=== PATIENT | female | born 1950 | race Caucasian/White ===

== ENCOUNTER 2019-05-18 08:10 | Outpatient (CLI) | payer MEDICARE, OTHER ==
[~2019-05-18] VITALS: Ht 160 cm; Wt 82.3 kg
[2019-05-18] VITALS (19 sets, daily range): BP systolic 124–153; BP diastolic 70–99; PULSE 80–92; TEMP 97.7
[2019-05-18] MEDS ORDERED: NEURONTIN100 MG/CAP PO (08:32)
[2019-05-18] MEDS ORDERED: PRILOSEC 20MG20 MG PO (08:33)
[2019-05-18] MEDS ORDERED: EFFEXOR 75M75 MG/TAB PO (08:33)
[2019-05-18] MEDS ORDERED: NORVASC 5MG5 MG/TAB PO (08:33)
[2019-05-18] MEDS ORDERED: ULTRAM 50MG TAB50 MG PO (08:34)
[2019-05-18] MEDS ORDERED: BOOST HIGH PRO240 ML (08:57)
--- NOTE | 2019-05-18 09:31 | NUR ---
PT WAS ENCOURAGED TO EMPTY BLADDER WHEN GATE KEEPER ARRIVES TO TAKE HER TO CT IMAGING. FERCHO TATE STATED THAT THE PATHOLOGIST SHOULD BE ARRIVING AT 10:30.
[2019-05-18 09:44] LABS: BASO % 0.3 % (0.0-2.0); EOS # 0.1 (0.0-0.7); EOS % 2.2 % (0-4.0); GRAN # 4.3 (1.4-6.5); GRAN % 73.9 % (42.2-75.2); HEMATOCRIT 38.2 % (37.0-47.0); HEMOGLOBIN 12.4 g/dl (12.5-16.0); LYMPH # 0.7 (1.2-3.4); LYMPH % 12.6 % (20.0-51.0); MEAN CELL VOLUME 93 fl (80.0-100.0); MEAN CORPUSCULAR HEMOGLOBIN 30 pg (27.0-31.0); MEAN CORPUSCULAR HGB CONC 33 g/dl (33.0-37.0); MEAN PLATELET VOLUME 10.1 fl (7.4-10.4); MONO # 0.6 (0.1-0.6); MONO % 10.8 % (1.7-9.3); PLATELET COUNT 257 K/mm3 (130-400); RED BLOOD COUNT 4.12 M/mm3 (4.10-5.30); REDCELL DISTRIBUTION WIDTH-CV 12.8 % (11.5-14.5)
[2019-05-18 09:45] LABS: INR 0.9 (0.8-3.0); PROTHROMBIN TIME 10.7 SECONDS (9.7-12.8)
[2019-05-18 09:47] LABS: PARTIAL THROMBOPLASTIN TIME 34.5 SECONDS (26.0-37.0)
--- NOTE | 2019-05-18 10:25 | NUR ---
pt on ct table on arrival. Pt in prone position. Monitors applied and O2 on at 2l/nc.
--- NOTE | 2019-05-18 10:45 | NUR ---
Specimens obtained and taken to pathologist to verify kidney cells.
--- NOTE | 2019-05-18 11:00 | NUR ---
PT RETURNED FROM PROCEDURE. REPORT TAKEN FROM FERCHO TATE FROM RADIOLOGY.
--- NOTE | 2019-05-18 13:30 | NUR ---
PT VOIDED AND URINE WAS CLEAR PER FERCHO JUARES IN [facility]. NO SAMPLE RACKED. THIS RN WILL RACK NEXT VOID.
--- NOTE | 2019-05-18 17:27 | NUR ---
PT TOOK TRAMADOL 50 MG 1 TABLET FOR PAIN CONTROL ON THE WAY HOME.
--- NOTE | 2019-05-18 17:30 | NUR ---
Discharge instructions reviewed with pt/friend. Pt/friend voiced understanding. Pt rating pain level in her lower back 3/10. Pt stated above her tailbone and denies pain in the flank area. Pt stated she has a hard time laying on her back and feels this is what is causing her low back pain. Tramadol was taken earlier and this was the pt's own medication. IV was discontinued by FERCHO Choe in [facility]. Pt ambulated with no complications in and around the unit. Pt does not complain of N/V and tolerated intake well. Pt voiding with no complications and urine remains yellow and clear. Pt was discharged via w/c to the care of friend, Estela, in private vehicle with discharge instructions in hand.
== END 2019-05-18 17:30 | disposition home or self-care (01) ==
LOC: COL.RAD 08:10
PROVIDERS: Internal Medicine Nephrology
DX: N18.3 Chronic kidney disease, stage 3 (moderate) (principal)
CPT/HCPCS: J2250; J3010